=== PATIENT | female | born 1980 | race Caucasian/White ===

== ENCOUNTER 2021-03-29 18:25 | Emergency (ER) | payer OTHER ==
[~2021-03-29] VITALS: Ht 157.5 cm; Wt 86.2 kg
[2021-03-29] MEDS ORDERED: CEPHALEXIN500 MG PO (19:10)
[2021-03-29 19:18] VITALS: BP 131/70
== END 2021-03-29 19:19 | disposition home or self-care (01) ==
LOC: M.ERS 18:25
DX: O9A.212 Injury, poisoning and certain other consequences of external causes complicating pregnancy, second trimester (principal); S61.214A Laceration without foreign body of right ring finger without damage to nail, initial encounter; Z3A.27 27 weeks gestation of pregnancy; W26.8XXA Contact with other sharp object(s), not elsewhere classified, initial encounter; Y93.89 Activity, other specified; Y92.89 Other specified places as the place of occurrence of the external cause; Y99.8 Other external cause status